=== PATIENT | female | born 1955 | race Two or more races ===

== ENCOUNTER 2021-08-26 01:22 | Emergency (ER) | payer OTHER ==
[~2021-08-26] VITALS: Ht 160 cm; Wt 92.5 kg
--- NOTE | 2021-08-26 01:29 | NUR ---
JILL 79 FROM HOME C/O SOB SINCE EARLIER THIS EVENING GIVEN ALBUTEROL 5 MG EN ROUTE WITH SOME IMPROVEMENT. 02 SAT 100% ON RA UPON ARRIVAL BREATHING EVEN AND UNLABORED WHEEZES NOTED BILATERALLY. PT PLACED ON A MONITOR AND MD WAS AT BEDSIDE FOR EVAL.
[2021-08-26] MEDS: IPRATROPIUM NEB FS 0.5 MG/2.5 ML AMPUL.NEB NEB ONE (01:44)
[2021-08-26] MEDS: ALBUTEROL FS 2.5 MG/0.5 ML VIAL.NEB NEB ONE ×2 (01:44→03:14)
[2021-08-26] MEDS ORDERED: IPRATROPIUM NEB FS 0.5 MG/2.5 ML AMPUL.NEB ONE (01:50)
[2021-08-26] MEDS ORDERED: ALBUTEROL FS 2.5 MG/3 ML VIAL.NEB ONE ×2 (01:50→03:16)
[2021-08-26] MEDS ORDERED: DEXAMETHASONE SOD PHOSPHATE 10 MG/ML VIAL ONE (01:57)
[2021-08-26] MEDS ORDERED: CLONIDINE HCL 0.1 MG TABLET ONE (01:58)
[2021-08-26] MEDS: DEXAMETHASONE SOD PHOSPHATE 4 MG/ML VIAL IM ONE (02:06)
[2021-08-26] MEDS: CLONIDINE HCL 0.1 MG TABLET PO ONE (02:11)
--- NOTE | 2021-08-26 02:44 | NUR ---
Respiritory therapist called for breathing treatment
--- NOTE | 2021-08-26 03:17 | NUR ---
RT AT BEDSIDE
[2021-08-26] MEDS ORDERED: PRED50TA PO (03:40)
--- NOTE | 2021-08-26 03:45 | NUR ---
SON CALLED FOR PICKUP BUT NO ANSWER. LEFT A VOICEMAIL.
--- NOTE | 2021-08-26 05:06 | NUR ---
called pt's son again, still no answer. message left
--- NOTE | 2021-08-26 05:43 | NUR ---
SON WILL [employer] PT ETA 30 MIN.
--- NOTE | 2021-08-26 06:20 | NUR ---
Patient discharged to home in stable condition. Written and verbal after care instructions given. Patient verbalizes understanding of instruction. Pt ambulatory with a steady gait
--- NOTE | 2021-08-26 06:20 | NUR ---
PT IS RELEASED TO HER SON, JSAON AND INSTRUCTIONS AND RX WAS GIVEN TO SON.
[2021-08-26 06:22] VITALS: BP 145/72
== END 2021-08-26 06:22 | disposition home or self-care (01) ==
LOC: ER 01:35
DX: J98.01 Acute bronchospasm (principal); I10 Essential (primary) hypertension; E11.9 Type 2 diabetes mellitus without complications; Z60.2 Problems related to living alone; Z79.899 Other long term (current) drug therapy
CPT/HCPCS: 94640 ×2; 96372; 99285; J1100

== ENCOUNTER 2023-07-19 13:32 | Emergency (ER) | payer OTHER ==
[~2023-07-19] VITALS: Ht 160 cm; Wt 74.4 kg
[~2023-07-19 13:32] MED LIST: PRED50TA PO
[2023-07-19] MEDS ORDERED: ONDANSETRON HCL/PF 4 MG/2 ML VIAL IVP ONE (15:00)
[2023-07-19] MEDS ORDERED: ONDANSETRON HCL/PF 4 MG/2 ML VIAL ONE (15:22)
[2023-07-19 15:34] LABS: BASOPHILS % (AUTO) 0.3 % (0.0-2.0); EOSINOPHILS % (AUTO) 0.4 % (0.0-6.0); HEMATOCRIT 27 % (33-45); LYMPHOCYTES # (AUTO) 1.1 K/uL (0.8-4.8); LYMPHOCYTES % (AUTO) 8.5 % (20.0-44.0); MEAN CORPUSCULAR HEMOGLOBIN 31 PG (26.0-33.0); MEAN CORPUSCULAR HGB CONC 34 g/dl (31.0-36.0); MEAN CORPUSCULAR VOLUME 92 fL (82-100); MONOCYTES # (AUTO) 1.2 K/uL (0.1-1.30); MONOCYTES % (AUTO) 9.3 % (2.0-12.0); NEUTROPHILS # (AUTO) 10.5 K/uL (1.8-8.9); NEUTROPHILS % (AUTO) 81.5 % (43.0-81.0); PLATELET COUNT (AUTO) 340 K/uL (150-450); RED BLOOD CELL COUNT(AUTO) 2.92 MIL/uL (4.0-5.2); RED CELL DISTRIBUTION WIDTH 13.8 % (11.5-15.0); WHITE BLOOD COUNT (AUTO) 12.9 K/uL (4.3-11.0)
[2023-07-19 15:49] LABS: CALCIUM, SERUM 8.2 mg/dL (8.5-10.1); CARBON DIOXIDE 24 mmol/L (21-32); CHLORIDE 94 mmol/L (98-107); CREATININE 3.3 mg/dL (0.6-1.3); GLUCOSE 212 mg/dL (74-106); POTASSIUM 3.6 mmol/L (3.5-5.1); SODIUM SERUM 131 mmol/L (136-145); UREA NITROGEN, BLOOD 69 mg/dL (7-18)
[2023-07-19 15:55] LABS: ALANINE AMINOTRANSFERASE 16 U/L (12-78); ALKALINE PHOSPHATASE 230 U/L (46-116); ASPARTATE AMINOTRANSFERASE 18 U/L (15-37); BILIRUBIN,DIRECT 0.1 mg/dL (0.0-0.2); BILIRUBIN,TOTAL 0.3 mg/dL (0.2-1.0); LIPASE 172 U/L (16-77); TOTAL PROTEIN, SERUM 7.3 g/dL (6.4-8.2)
[2023-07-19] MEDS ORDERED: PROP40TA7 PO (16:45)
[2023-07-19] MEDS ORDERED: LINA145C PO (16:45)
[2023-07-19] MEDS ORDERED: ATOR40TA PO (16:45)
[2023-07-19] MEDS ORDERED: CLON0.1T PO (16:45)
[2023-07-19] MEDS ORDERED: INSU100V7 SQ (16:45)
[2023-07-19] MEDS ORDERED: HYDR-4077 PO (16:45)
[2023-07-19] MEDS ORDERED: OMEP40CA21 PO (16:45)
[2023-07-19] MEDS ORDERED: CINA30TA2 PO (16:48)
[2023-07-19 19:18] VITALS: BP 158/65; TEMP 208.6; O2SAT 98
== END 2023-07-19 19:19 | disposition home or self-care (01) ==
LOC: ER 13:32
DX: I12.0 Hypertensive chronic kidney disease with stage 5 chronic kidney disease or end stage renal disease (principal); N18.6 End stage renal disease; E11.22 Type 2 diabetes mellitus with diabetic chronic kidney disease; R79.89 Other specified abnormal findings of blood chemistry; R55 Syncope and collapse; R11.2 Nausea with vomiting, unspecified; Z79.899 Other long term (current) drug therapy; Z60.2 Problems related to living alone
CPT/HCPCS: 99285; 74176; 96374; 71045; 93005; 85025; 80048; 83690; 80076; 36415; 84484; J2405